=== PATIENT | male | born 1990 | race Asian ===

== ENCOUNTER 2021-04-02 09:46 | Emergency (ER) | payer OTHER ==
[~2021-04-02] VITALS: Ht 190.5 cm; Wt 83.5 kg
[2021-04-02 13:31] VITALS: BP 122/65
== END 2021-04-02 13:33 | disposition home or self-care (01) ==
LOC: M ED 09:46
DX: S09.90XA Unspecified injury of head, initial encounter (principal); R51.9 Headache, unspecified; H53.8 Other visual disturbances; Y92.9 Unspecified place or not applicable; Y93.9 Activity, unspecified; Y99.9 Unspecified external cause status

== ENCOUNTER → 2021-11-05 | Outpatient (CLI) | payer OTHER | LOC: M PLALAB 15:52 | PROVIDERS: ATTEND Psychiatry & Neurology Neurology | DX: H53.2 Diplopia (principal); H02.409 Unspecified ptosis of unspecified eyelid ==